=== PATIENT | male | born 1980 | race Caucasian/White ===

== ENCOUNTER 2023-06-25 03:15 | Emergency (ER) | payer OTHER ==
[~2023-06-25] VITALS: Ht 180.3 cm; Wt 74.8 kg
[2023-06-25 03:36] VITALS: BP 128/84; TEMP 97.8; O2SAT 100
== END 2023-06-25 03:36 ==
LOC: ER 03:25
DX: Z02.89 Encounter for other administrative examinations (principal); Z90.49 Acquired absence of other specified parts of digestive tract; Z60.2 Problems related to living alone